=== PATIENT | female | born 1955 | race Caucasian/White ===

== ENCOUNTER 2023-07-11 12:27 | Emergency (ER) | payer MEDICARE, OTHER, MEDICAID, SELFPAY ==
[2023-07-11] VITALS (11 sets, daily range): BP systolic 107–125; BP diastolic 67–76; PULSE 80–88; RESP 18; TEMP 36.6; O2SAT 94–96; BMI 27.8
[2023-07-11 14:12] LABS: Troponin, Point-of-Care* 0.01 ng/ml (0.01-0.04)
[2023-07-11 14:31] LABS: Chloride* 104 mmol/L (96-114)
[2023-07-11 14:32] LABS: Potassium* 4.1 mmol/L (3.6-5.1); Sodium* 139 mmol/L (135-149)
[2023-07-11 14:34] LABS: Creatinine* 0.6 mg/dL (0.5-1.5); Est. Creatinine Clearance* 51.11; Estimated Glomerular Filt Rate 98 ml/min
[2023-07-11 14:35] LABS: Anion Gap 8 mEq/L (7-15); Blood Urea Nitrogen* 23 mg/dL (7-30); Calcium* 9.3 mg/dL (8.4-10.6); Carbon Dioxide* 27 mmol/L (20-32); Glucose* 101 mg/dL (60-115); Magnesium* 2.1 mg/dL (1.5-2.6)
[2023-07-11 14:36] LABS: Basophils Absolute Auto 0.03 K/uL (0.00-0.30); Basophils Percent Auto 0.4 % (0.0-3.0); Eosinophils Absolute Auto 0.18 K/uL (0.00-0.50); Eosinophils Percent Auto 2.4 % (0.0-7.0); Hematocrit 42.2 % (33.0-51.0); Hemoglobin* 13.6 gm/dL (12.0-16.0); Immature Granulocytes Abs Auto 0.02 K/uL (0.00-0.30); Immature Granulocytes Pct Auto 0.3 %; Lymphocytes Absolute Auto 1.85 K/uL (0.90-2.90); Lymphocytes Percent Auto 24.7 % (20-44); Mean Corpuscular HGB Conc 32 gm/dL (32-36); Mean Corpuscular Hemoglobin 30 pg (26-34); Mean Corpuscular Volume 94 fL (80-100); Monocytes Percent Auto 5.9 % (0.0-11.0); Neutrophils Absolute Auto 4.98 K/uL (1.7-7.0); Neutrophils Percent Auto 66.3 % (42.0-72.0); Platelet Count* 256 K/uL (140-440); RDW Coefficient of Variation % 13.1 % (11.5-15.5); Red Blood Count 4.47 m/uL (4.00-5.20)
[2023-07-11 14:38] LABS: Slide Review Reflex No
[2023-07-11 14:49] LABS: D Dimer Quantitative* 0.88 ug/ml (0.00-0.50)
--- NOTE | 2023-07-11 16:42 | ED_ITS ---
HPI - General Adult General Date Seen: 07/11/23 Chief complaint: Dizziness/Vertigo Stated complaint: Faint episode Time Seen by Provider: 07/11/23 13:35 Source: patient Mode of arrival: ambulatory Limitations: no limitations History of Present Illness HPI narrative: Patient is a 67-year-old woman who presents for evaluation of near syncopal episode while she was out walking dogs. She walks dogs professionally. She says the past year this is the 5th episode like this that she has had, it is always when she is out walking dogs. She says that she is very physically fit, she walks 8-14 miles a day and also does more cardiovascularly challenging workouts on a recumbent bike. She has never had trouble with more vigorous exertion. She does not get chest pain, difficulty breathing, says these episodes come on really suddenly the 1st thing that she will feels that her legs are going to give out. Today was bad enough that she had a laid down for a few minutes and wait until it passed. She has not ever been evaluated for this previously. She says during these episodes she feels like she can not feel her pulse. She denies recent illness, did have shoulder surgery 3 weeks ago, no lower extremity swelling or pain, no history of DVT or PE. She does not smoke or drink. Here today with her . Related Data Allergies Allergy/AdvReac Type Severity Reaction Status Date / Time adhesive tape Allergy Verified 07/11/23 13:22 iodine Allergy Verified 07/11/23 13:22 latex Allergy Verified 07/11/23 13:22 NSAIDS (Non-Steroidal Allergy Verified 07/11/23 13:22 Anti-Inflamma prochlorperazine Allergy Verified 07/11/23 13:22 [From Compazine] molds Allergy Uncoded 07/11/23 13:22 narcotics Allergy Uncoded 07/11/23 13:22 Review of Systems Status of ROS: Reports: 10 or more systems reviewed and unremarkable except as noted in History and below [facility] Social History Smoking Status: Never smoker Do you use any of these nicotine containing products: None Second hand tobacco smoke exposure: No How often do you have a drink containing alcohol: never How often do you have six or more drinks on one occasion: Never AUDIT-C Alcohol total score: 0 Non-prescribed substance use: denies use service: No Exam Narrative: Exam Narrative: Vital signs as noted above. In general, an alert, well-appearing patient. Head: Normocephalic, atraumatic. Eyes: Pupils are equal reactive. Extraocular movements are full. Conjunctivae are normal. ENT: Mucous membranes are moist. Throat is normal. Neck: Supple without lymphadenopathy. Heart: Regular rate and rhythm. No murmur or rub. Lungs: Clear bilaterally. No increased work of breathing, crackles or wheezes. Abdomen: Soft and nontender. No organomegaly. Extremities: Well perfused. No edema. No calf tenderness. Pulses intact. Neurologic: Patient is alert and oriented to person and place. Speech is fluent. Face is symmetric. Moves all extremities equally. Affect: Normal. Skin: Warm and dry. Well perfused. Const: Vital Signs, click to edit/add: Vital Signs - 24 hr 07/11/23 13:22 07/11/23 13:58 07/11/23 14:00 Temperature 97.9 F Pulse Rate 84 85 Pulse Rate [Pulse Oximeter] 88 Respiratory Rate 18 Blood Pressure Blood Pressure [Ri ght Upper Arm] 125/70 Pulse Oximetry 96 95 96 Oxygen Delivery Me thod Room Air 07/11/23 14:01 07/11/23 14:02 07/11/23 14:30 Temperature Pulse Rate 87 87 85 Pulse Rate [Pulse Oximeter] Respiratory Rate Blood Pressure 115/76 Blood Pressure [Ri ght Upper Arm] Pulse Oximetry 95 95 94 Oxygen Delivery Me thod 07/11/23 14:32 07/11/23 14:35 07/11/23 15:00 Temperature Pulse Rate 86 82 Pulse Rate [Pulse Oximeter] Respiratory Rate Blood Pressure 107/67 Blood Pressure [Ri ght Upper Arm] Pulse Oximetry 96 95 95 Oxygen Delivery Me thod 07/11/23 15:02 07/11/23 15:30 Temperature Pulse Rate 80 85 Pulse Rate [Pulse Oximeter] Respiratory Rate Blood Pressure 107/71 Blood Pressure [Ri ght Upper Arm] Pulse Oximetry 94 95 Oxygen Delivery Me thod Course Course ED Course: Patient had an EKG which by my review shows sinus rhythm, ventricular rate of 83. TN is normal, corrected QT is 441. No acute ST segment changes, normal T- waves. Patient had labs which showed normal white blood cell count, hemoglobin of 13.6. Electrolytes are normal, including magnesium. Point of care troponin is 0.01. D-dimer is mildly elevated for age at 0.88. I discussed the abnormal D-dimer with her and we talked about whether to pursue CT scanning or not. She feels that she would prefer not to in discussion of risks and benefits, which I think is reasonable. She is not hypoxic or tachycardic, she is asymptomatic now, I think the likelihood of significant PE as a cause for her syncope is low. These episodes certainly could be vagal in nature, I do think given that she has had no prior evaluation that some sort of cardiac monitoring in the form of most likely ZIO patch given the infrequency of her episodes would be reasonable. Her primary doctor is Dr. Whittaker, I have asked her to follow up with him and arrange for monitoring as an outpatient. If she has acute worsening, develops chest pain, difficulty breathing, fainting or other worsening return at any time to the emergency department. She is comfortable with that plan. Vital Signs Vital signs: Initial Vital Signs Temperature 97.9 F 07/11/23 13:22 Temperature Source Temporal Artery Scan 07/11/23 13:22 Pulse Rate 88 07/11/23 13:22 Pulse Rhythm Regular 07/11/23 13:22 Respiratory Rate 18 07/11/23 13:22 Blood Pressure 125/70 07/11/23 13:22 Blood Pressure Mean 88 07/11/23 13:22 Blood Pressure Position Sitting 07/11/23 13:22 Pulse Oximetry 96 07/11/23 13:22 Oxygen Delivery Method Room Air 07/11/23 13:22 Vital Signs Temperature 97.9 F 07/11/23 13:22 Pulse Rate 88 07/11/23 13:22 Respiratory Rate 18 07/11/23 13:22 Blood Pressure 125/70 07/11/23 13:22 Pulse Oximetry 96 07/11/23 13:22 Oxygen Delivery Method Room Air 07/11/23 13:22 Temperature 97.9 F 07/11/23 13:22 Pulse Rate 85 07/11/23 15:30 Respiratory Rate 18 07/11/23 13:22 Blood Pressure 107/71 07/11/23 15:02 Pulse Oximetry 95 07/11/23 15:30 Oxygen Delivery Method Room Air 07/11/23 13:22 Medical Decision Making Lab Data Labs: Lab Results 07/11/23 Range/Units 13:48 WBC 7.50 (4.50-11.00) K/uL RBC 4.47 (4.00-5.20) m/uL Hgb 13.6 (12.0-16.0) gm/dL Hct 42.2 (33.0-51.0) % MCV 94 (80-100) fL MCH 30 (26-34) pg MCHC 32 (32-36) gm/dL RDW Coeff of Boo 13.1 (11.5-15.5) % Plt Count 256 (140-440) K/uL Neut % (Auto) 66.3 (42.0-72.0) % Lymph % (Auto) 24.7 (20-44) % [place]ascade % (Auto) 5.9 (0.0-11.0) % Eos % (Auto) 2.4 (0.0-7.0) % Baso % (Auto) 0.4 (0.0-3.0) % Neut # (Auto) 4.98 (1.7-7.0) K/uL Lymph # (Auto) 1.85 (0.90-2.90) K/uL Cascade # (Auto) 0.40 (0.00-0.90) K/UL Eos # (Auto) 0.18 (0.00-0.50) K/uL Baso # (Auto) 0.03 (0.00-0.30) K/uL Abs Immat Gran (auto) 0.02 (0.00-0.30) K/uL Imm/Tot Granulo (auto) 0.3 % D-Dimer Quant (PE/DVT) 0.88 H (0.00-0.50) ug/ml Sodium 139 (135-149) mmol/L Potassium 4.1 (3.6-5.1) mmol/L Chloride 104 (96-114) mmol/L Carbon Dioxide 27 (20-32) mmol/L Anion Gap 8 (7-15) mEq/L BUN 23 (7-30) mg/dL Creatinine 0.6 (0.5-1.5) mg/dL Estimated Creat Clear 51.11 Estimated GFR 98 ml/min Glucose 101 (60-115) mg/dL Calcium 9.3 (8.4-10.6) mg/dL Magnesium 2.1 (1.5-2.6) mg/dL POC Troponin I 0.01 (0.01-0.04) ng/ml Discharge Plan Discharge Clinical Impression: Near syncope Patient Disposition: Home, Self-Care Condition: Improved Instructions: Near Syncope (ED) Additional Instructions: Recommend follow-up with your primary doctor, I would suggest some sort of cardiac monitoring at home such as a Holter monitor or ZIO patch. Your labs here today are unremarkable with the exception of a very mildly elevated D-dimer. As we have discussed, this is a nonspecific test that we use to screen for blood clots. We have decided not to pursue that diagnosis further today, but if you were to develop significant shortness of breath, fainting, chest pain or other new symptoms, you should return for re-evaluation. Follow Up/Referrals: Donaldo Whittaker MD [Primary Care Provider] - Stand Alone Forms: [employer] Info Instructions
== END 2023-07-11 15:46 | disposition home or self-care (01) ==
PROVIDERS: Emergency Provider Emergency Medicine; PCP Family Medicine
DX: R55 Syncope and collapse (principal)
CPT/HCPCS: 36415; 80048; 83735; 84484; 85025; 85379; 93005; 94761; 99284

== ENCOUNTER 2023-11-13 01:42 | Emergency (ER) | payer MEDICARE, OTHER, SELFPAY ==
[2023-11-13] VITALS (7 sets, daily range): BP systolic 105–149; BP diastolic 64–125; PULSE 63–75; RESP 14–20; TEMP 36.7; O2SAT 95–98; BMI 30.3
[2023-11-13 02:13] LABS: Basophils Absolute Auto 0.03 K/uL (0.00-0.30); Basophils Percent Auto 0.5 % (0.0-3.0); Eosinophils Absolute Auto 0.22 K/uL (0.00-0.50); Eosinophils Percent Auto 3.5 % (0.0-7.0); Hematocrit 38.8 % (33.0-51.0); Hemoglobin* 12.4 gm/dL (12.0-16.0); Immature Granulocytes Abs Auto 0.02 K/uL (0.00-0.30); Immature Granulocytes Pct Auto 0.3 %; Lymphocytes Absolute Auto 2.46 K/uL (0.90-2.90); Lymphocytes Percent Auto 38.6 % (20-44); Mean Corpuscular HGB Conc 32 gm/dL (32-36); Mean Corpuscular Hemoglobin 30 pg (26-34); Mean Corpuscular Volume 94 fL (80-100); Monocytes Percent Auto 7.4 % (0.0-11.0); Neutrophils Absolute Auto 3.17 K/uL (1.7-7.0); Neutrophils Percent Auto 49.7 % (42.0-72.0); Platelet Count* 192 K/uL (140-440); RDW Coefficient of Variation % 13.3 % (11.5-15.5); Red Blood Count 4.15 m/uL (4.00-5.20); White Blood Count* 6.37 K/uL (4.50-11.00)
[2023-11-13 02:16] LABS: Slide Review Reflex No
[2023-11-13 02:25] LABS: Chloride* 105 mmol/L (96-114); Sodium* 137 mmol/L (135-149)
[2023-11-13 02:26] LABS: Potassium* 3.8 mmol/L (3.6-5.1)
[2023-11-13 02:28] LABS: Alkaline Phosphatase* 79 U/L (40-150); Anion Gap 6 mEq/L (7-15); Aspartate Amino Transferase* 50 U/L (12-35); Bilirubin Total* 0.4 mg/dL (0.1-1.5); Carbon Dioxide* 26 mmol/L (20-32); Creatinine* 0.6 mg/dL (0.5-1.5); Est. Creatinine Clearance* 51.11; Estimated Glomerular Filt Rate 98 ml/min; Total Protein* 6.9 g/dL (6.0-8.3)
[2023-11-13 02:29] LABS: Alanine Aminotransferase* 29 U/L (4-35); Blood Urea Nitrogen* 27 mg/dL (7-30); Glucose* 100 mg/dL (60-115)
--- NOTE | 2023-11-13 02:29 | XR_ITS ---
Patient: SANDI GAUTHIER Facility:?[facility] Patient ID:?[id number] Site Patient ID:?[id number]. Site :?[id number] Study:?XRay-Chest 2 VIEW-11/13/2023 2:49:06 AM Ordering Physician:MARTHA Final Report: INDICATION: Chest pain TECHNIQUE: Chest radiograph 2 views COMPARISON: None FINDINGS: Mediastinum: The mediastinum is normal in appearance. The heart silhouette is normal in size and morphology. Lung: Both lungs are unremarkable in appearance. No sign of pleural effusion seen. No pneumothorax is identified. Bone and Soft tissue: Unremarkable for age. IMPRESSION: 1. No acute cardiopulmonary disease is seen. Dictated by: Kiran Encarnacion MD @ 11/13/2023 02:52:46 Signed by:Fran Encarnacion MD @11/13/2023 2:52:46 AM (Electronic Signature)
[2023-11-13] MEDS: ONDANSETRON 2 MG/ML inj 4 MG IVP (02:34)
[2023-11-13] MEDS: 0.9 % SODIUM CHLORIDE 500 ML 500 ML 1000 ML IV (02:35)
[2023-11-13] MEDS: PANTOPRAZOLE SODIUM 40 MG INJ IVP (02:35)
--- NOTE | 2023-11-13 02:36 | ED_ITS ---
HPI - General Adult General Chief complaint: Chest Pain Stated complaint: acute chest pain Time Seen by Provider: 11/13/23 02:02 Source: patient Mode of arrival: ambulatory Limitations: no limitations History of Present Illness HPI narrative: 67-year-old female presents the emergency department for evaluation of chest pain for the past couple of hours. Pain woke her from sleep, lower chest, central, spasm like. Lasted about 20 minutes and was accompanied by nausea. It was initially constant and then it abruptly stopped, went away for about 30 minutes. Happened while she was at rest. It came again, lasting about 15-20 minutes, this time not accompanied by nausea. She reports that she has a history of gastric bypass and cannot vomit. She has not been having diarrhea, fever. She did not try any interventions to help with symptoms prior to coming to the ED. Does not regularly use antacids. Reports that she feels like she cannot take a deep breath but is not having breathing difficulty. The chest pain is constant, lower chest, anterior, does not radiate. She has a history of SVT and used a pulse oximeter to check her heart rate and realized it was normal at home. Initially this was reassuring but she became concerned with the 2nd episode of pain that caused her to come to the ED. she had a 3rd episode about 10 minutes after arrival to the ED which did not last as long but felt similar. She was on the monitors at the time and no evidence of arrhythmia, abnormal vital signs or hypoxia were noted. Denies prior history of similar symptoms. She believe she has had a stress test remotely but not recent. She had an echo in late August as part of her SVT workup and has been referred to electrophysiology. She actually does have an ablation scheduled in 2 weeks. No recent fevers or other signs of illness. No sick contacts. No new foods. She has been exercising more lately, walking 5-6 miles per day where she was previously only walking too. She has been having a little bit of charley horses behind the knee and in the lower thigh at night on occasion, but especially last night. No history of DVT or PE. No calf tenderness or difficulty walking. No swelling. Feels anxious but does not believe this is the only reason for her symptoms. She suspects it is related to her stomach. Past medical history notable for prior gastric bypass surgery, cholecystectomy, appendectomy. Reports that her only home medications are twice weekly iron, 12.5 mg of metoprolol daily and Trini for mold allergies. No recent injury or trauma. Socially she is a nonsmoker. ROS is notable for the chest/GI symptoms as described above, otherwise denies times 12 systems. Related Data Home Medications Medication Instructions Recorded Confirmed fluticasone propionate 50 1 spray intranasal DAILY 11/13/23 11/13/23 mcg/actuation nasal spray,suspension metoprolol succinate 25 mg 12.5 mg PO DAILY 11/13/23 11/13/23 tablet,extended release 24 hr Allergies Allergy/AdvReac Type Severity Reaction Status Date / Time adhesive tape Allergy Verified 07/11/23 13:22 iodine Allergy Verified 07/11/23 13:22 latex Allergy Verified 07/11/23 13:22 NSAIDS (Non-Steroidal Allergy Verified 07/11/23 13:22 Anti-Inflamma prochlorperazine Allergy Verified 07/11/23 13:22 [From Compazine] molds Allergy Uncoded 07/11/23 13:22 narcotics Allergy Uncoded 07/11/23 13:22 [facility] Surgical History H/O gastric bypass ?Z98.84 - Bariatric surgery status (ICD-10) Social History Smoking Status: Never smoker Do you use any of these nicotine containing products: None Second hand tobacco smoke exposure: No How often do you have a drink containing alcohol: never How often do you have six or more drinks on one occasion: Never AUDIT-C Alcohol total score: 0 Non-prescribed substance use: denies use service: No Exam Const: Vital Signs, click to edit/add: Vital Signs - 24 hr 11/13/23 01:50 11/13/23 02:00 11/13/23 02:15 Temperature 98.1 F Pulse Rate [Pulse Oximeter] 75 67 75 Respiratory Rate 20 20 20 Blood Pressure [Ri ght Upper Arm] 149/96 H 118/80 144/125 H Pulse Oximetry 98 95 98 Oxygen Delivery Me thod Room Air Room Air Room Air 11/13/23 02:30 11/13/23 02:40 11/13/23 03:00 Temperature Pulse Rate [Pulse Oximeter] 66 63 Respiratory Rate 16 16 Blood Pressure [Ri ght Upper Arm] 127/96 H 105/64 Pulse Oximetry 98 98 98 Oxygen Delivery Me thod Room Air Room Air 11/13/23 03:30 Temperature Pulse Rate [Pulse Oximeter] 67 Respiratory Rate 14 Blood Pressure [Ri ght Upper Arm] 120/76 Pulse Oximetry 98 Oxygen Delivery Me thod Room Air Documenting provider has reviewed patient's vital signs: yes Common normals: no apparent distress General appearance: cooperative and well kempt Other: Mildly anxious but redirectable. Good historian. HENMT: Common normals: normocephalic, moist oral mucous membranes and oropharynx normal Head and scalp: normocephalic Mouth: oral and palatal mucosa normal Eye: Common normals: conjunctivae normal and fundi normal bilaterally General eye: normal appearance of both eyes Conjunctiva: conjunctiva(e) normal Direct Ophthalmoscopy: fundi normal bilaterally Neck & C-Spine: Common normals: full ROM and no lymphadenopathy Resp: Common normals: normal respiratory effort, no use of accessory muscles and clear to auscultation bilaterally Effort & inspection: able to speak in complete sentences Auscultation: clear to auscultation bilaterally Cardio: Common normals: regular rate, regular rhythm, S1 normal heart sound, S2 normal heart sound and no murmurs Rate: regular rate Rhythm: regular rhythm Heart sounds: S1 normal and S2 normal GI: Common normals: Normal to inspection, nondistended, normoactive bowel sounds present, soft to palpation, non-tender, no hepatosplenomegaly and no masses Palpation: soft and no hepatosplenomegaly Extremity: Common normals: normal to inspection, full ROM, normal capillary refill and no pedal edema Other: , no palpable cords or tenderness. Negative Homans. Neuro: Speech: speech normal Motor exam: strength 5/5 throughout and no movement abnormalities noted Psych: Appearance: well kempt Attitude: engaged Activity/motor behavior: appropriate eye contact Mood and affect: anxious Insight: insight good Judgement: judgment good Skin: Common normals: no rashes or lesions noted General skin exam: no rashes or lesions noted Course Course ED Course: 67-year-old female with history of SVT presenting with chest pain, suspicious for esophageal spasm. Cannot exclude arrhythmia, acute coronary syndrome, pulmonary embolism, musculoskeletal etiology, GERD, gastroenteritis, among others. Suspect GI in origin. Initial vitals are reassuring. EKG is obtained showing obvious normal sinus rhythm and no signs of ischemia. Typical blood will be drawn to look for acute cardiac process, chest x-ray, inflammatory markers. Will give Protonix, Zofran and IV fluid. Consider Toradol. Await findings. Reevaluation(s) Time of Reevaluation #1: 03:34 Reevaluation #1: Patient with complete relief of symptoms after Zofran and Protonix. Normal labs and x-ray reviewed with patient. Second trouble be drawn about 10 minutes. Expect this to be normal as well. Counseled that this was likely an esophageal spasm. She will be given a prescription for Zofran, instructed on taking once daily famotidine or omeprazole for at least the next 5 days. Alarm symptoms reviewed that would warrant further ED workup or primary care follow-up. She verbalizes understanding and agreement. Has no further questions. Update: 2nd troponin negative. Vital Signs Vital signs: Initial Vital Signs Temperature 98.1 F 11/13/23 01:50 Temperature Source Temporal Artery Scan 11/13/23 01:50 Pulse Rate 75 11/13/23 01:50 Respiratory Rate 20 11/13/23 01:50 Blood Pressure 149/96 H 11/13/23 01:50 Blood Pressure Mean 113 H 11/13/23 01:50 Blood Pressure Position Sitting 11/13/23 01:50 Pulse Oximetry 98 11/13/23 01:50 Oxygen Delivery Method Room Air 11/13/23 01:50 Vital Signs Temperature 98.1 F 11/13/23 01:50 Pulse Rate 75 11/13/23 01:50 Respiratory Rate 20 11/13/23 01:50 Blood Pressure 149/96 H 11/13/23 01:50 Pulse Oximetry 98 11/13/23 01:50 Oxygen Delivery Method Room Air 11/13/23 01:50 Temperature 98.1 F 11/13/23 01:50 Pulse Rate 67 11/13/23 03:30 Respiratory Rate 14 11/13/23 03:30 Blood Pressure 120/76 11/13/23 03:30 Pulse Oximetry 98 11/13/23 03:30 Oxygen Delivery Method Room Air 11/13/23 03:30 Medications Administered Medications: Generic Name Dose Route Start Last Admin Trade Name Freq PRN Reason Stop Dose Admin Sodium Chloride 500 mls @ 1,000 mls/hr 11/13/23 02:30 11/13/23 03:09 0.9 % Sodium Chloride 500 Ml IV 11/13/23 02:59 Infused .Q30M TORO Infusion Ondansetron HCl 4 mg 11/13/23 02:29 11/13/23 02:34 Ondansetron 2 Mg/Ml Inj IVP 11/13/23 02:30 4 mg ONCE ONE Administration Pantoprazole Sodium 40 mg 11/13/23 02:29 11/13/23 02:35 Pantoprazole Sodium 40 Mg Inj IVP 11/13/23 02:30 40 mg ONCE ONE Administration Medical Decision Making Lab Data Labs: Lab Results 11/13/23 11/13/23 11/13/23 Range/Units 02:09 02:10 03:40 WBC 6.37 (4.50-11.00) K/uL RBC 4.15 (4.00-5.20) m/uL Hgb 12.4 (12.0-16.0) gm/dL Hct 38.8 (33.0-51.0) % MCV 94 (80-100) fL MCH 30 (26-34) pg MCHC 32 (32-36) gm/dL RDW Coeff of Boo 13.3 (11.5-15.5) % Plt Count 192 (140-440) K/uL Neut % (Auto) 49.7 (42.0-72.0) % Lymph % (Auto) 38.6 (20-44) % Divide % (Auto) 7.4 (0.0-11.0) % Eos % (Auto) 3.5 (0.0-7.0) % Baso % (Auto) 0.5 (0.0-3.0) % Neut # (Auto) 3.17 (1.7-7.0) K/uL Lymph # (Auto) 2.46 (0.90-2.90) K/uL Divide # (Auto) 0.50 (0.00-0.90) K/UL Eos # (Auto) 0.22 (0.00-0.50) K/uL Baso # (Auto) 0.03 (0.00-0.30) K/uL Abs Immat Gran (auto) 0.02 (0.00-0.30) K/uL Imm/Tot Granulo (auto) 0.3 % Sodium 137 (135-149) mmol/L Potassium 3.8 (3.6-5.1) mmol/L Chloride 105 (96-114) mmol/L Carbon Dioxide 26 (20-32) mmol/L Anion Gap 6 L (7-15) mEq/L BUN 27 (7-30) mg/dL Creatinine 0.6 (0.5-1.5) mg/dL Estimated Creat Clear 51.11 Estimated GFR 98 ml/min Glucose 100 (60-115) mg/dL Calcium 9.0 (8.4-10.6) mg/dL Total Bilirubin 0.4 (0.1-1.5) mg/dL AST 50 H (12-35) U/L ALT 29 (4-35) U/L Alkaline Phosphatase 79 (40-150) U/L Troponin I < 0.01 L (0.01-0.04) ng/mL C-Reactive Protein < 0.5 L (0.5-1.0) mg/dL NT-Pro-B Natriuret Pep 127 pg/mL Total Protein 6.9 (6.0-8.3) g/dL Albumin 4.0 (3.3-5.0) g/dL POC Troponin I 0.00 L 0.00 L (0.01-0.04) ng/ml Imaging Data Chest x-ray: Attestation: I have reviewed the pertinent imaging results. My impression: Normal chest x-ray Radiologist's impression: IMPRESSION: 1. No acute cardiopulmonary disease is seen. ECG Data Attestation: I personally reviewed and interpreted this ECG as follows: Prior ECG tracings: available for review Interpretation: Normal sinus rhythm, rate 65. Normal intervals and axis. No significant ST or T-wave abnormalities. Normal EKG. Comparison 07/15/2023 Discharge Plan Discharge Clinical Impression: Spasm of esophagus Patient Disposition: Home w/ Parent or Adult Condition: Improved Instructions: Esophageal Spasm (ED) Additional Instructions: I am glad that you are feeling so much better. I have given her prescription for the same anti nausea medicine to take if your symptoms return. I would also like for you to take a stomach acid medicine like [id number] famotidine or omeprazole once daily for the next 5 days. I suspect that your symptoms were triggered by a GI bug, we have lots of this going around right now. Drink lots of fluids, slowly advance her diet if you feel well enough to do so. If you have any severe abdominal pain, worsening of symptoms or failure to improve, please follow-up with your primary care doctor. Any severe symptoms, come back to the ED. avoid alcohol, spicy foods and overeating. Activity Level: No Restrictions Discharge Diet: Regular Prescriptions: No Action metoprolol succinate 25 mg tablet extended release 24 hr 12.5 mg PO DAILY fluticasone propionate 50 mcg/actuation spray,suspension 1 spray INTRANASAL DAILY Follow Up/Referrals: Donaldo Whittaker MD [Primary Care Provider] - Stand Alone Forms: [employer] Info Instructions
[2023-11-13 02:37] LABS: C Reactive Protein* < 0.5 mg/dL (0.5-1.0)
[2023-11-13 02:41] LABS: NT Pro B Type NatriureticPept* 127 pg/mL; Troponin I* < 0.01 ng/mL (0.01-0.04)
== END 2023-11-13 03:54 | disposition home or self-care (01) ==
PROVIDERS: Emergency Provider Family Medicine; PCP Family Medicine
DX: K22.4 Dyskinesia of esophagus (principal)
CPT/HCPCS: 36415; 71046; 80053; 83880; 84484; 85025; 86140; 93005; 94761; 96374; 96375; 99284; C9113; J2405; J7030

== ENCOUNTER 2023-12-24 17:52 | Emergency (ER) | payer MEDICARE, OTHER, SELFPAY ==
[2023-12-24 17:59] VITALS: BP 110/74; PULSE 78; RESP 18; TEMP 37.1; O2SAT 95
--- NOTE | 2023-12-24 18:09 | CRLHL7_ITS ---
For Patients: As a result of the Century Cures Act, medical imaging exams and procedure reports are released immediately into your electronic medical record. You may view this report before your referring provider. If you have questions, please contact your health care provider. INDICATION: Leg pain and swelling. TECHNIQUE: Ultrasound venous duplex lower right extremity. Compression venous exam was performed using pedroza-scale, color Doppler, and spectral Doppler analysis. COMPARISON: None. FINDINGS: Deep veins: Sonographic imaging demonstrates the right common femoral, deep femoral, superficial femoral, popliteal, posterior tibial and the contralateral left common femoral veins to be fully compressible with normal color Doppler blood flow. Superficial veins: Greater saphenous vein is fully compressible. Probable popliteal cyst measuring 5.6 x 1.0 x 2.5 centimeters.. IMPRESSION: No DVT in the right lower extremity. Dictated by Arianna Siddiqui MD @ 12/24/2023 7:40:29 PM (Electronically Signed)
--- NOTE | 2023-12-24 19:55 | ED.GENADULT ---
HPI - General Adult General Date Seen: 12/24/23 Chief complaint: Extremity Pain/Injury, Lower Stated complaint: Possible blood clot R leg Time Seen by Provider: 12/24/23 19:04 Source: patient Mode of arrival: ambulatory Limitations: no limitations History of Present Illness HPI narrative: Patient is 68-year-old female presenting to the emergency department for right knee pain. States has been going on for the past month. Pain starts in the back of the knee that radiates up both the front and back. Over the past week it has been worse. Symptoms are worse when sitting still but improved with movement. States she has had symptoms similar to this in the past was a Lam cyst. She tried to get appointment her primary care provider but was unable to in triage line told her to come to the emergency department for an ultrasound for possible blood clot. Denies any history of blood clots. Denies fevers, chills, weakness, numbness. No other concerns noted at this time. Related Data Home Medications ?Medication ?Instructions ?Recorded ?Confirmed fluticasone propionate 50 1 spray intranasal DAILY 11/13/23 11/13/23 mcg/actuation nasal spray,suspension metoprolol succinate 25 mg 12.5 mg PO DAILY 11/13/23 11/13/23 tablet,extended release 24 hr Allergies Allergy/AdvReac Type Severity Reaction Status Date / Time adhesive tape Allergy Verified 07/11/23 13:22 iodine Allergy Verified 07/11/23 13:22 latex Allergy Verified 07/11/23 13:22 NSAIDS (Non-Steroidal Allergy Verified 07/11/23 13:22 Anti-Inflamma prochlorperazine Allergy Verified 07/11/23 13:22 [From Compazine] molds Allergy Uncoded 07/11/23 13:22 narcotics Allergy Uncoded 07/11/23 13:22 Review of Systems Narrative: Pertinent systems reviewed and were negative unless stated HPI PFSH PFSH Surgical History H/O gastric bypass ?Z98.84 - Bariatric surgery status (ICD-10) Social History Smoking Status: Never smoker Do you use any of these nicotine containing products: None Second hand tobacco smoke exposure: No How often do you have a drink containing alcohol: never How often do you have six or more drinks on one occasion: Never AUDIT-C Alcohol total score: 0 Non-prescribed substance use: denies use service: No Exam Narrative: Exam Narrative: Const: Well-nourished, Well-developed, in mild distress Eyes: PERRL, no conjunctival injection, and symmetrical lids HENT: Atraumatic external nose and ears. Moist mucous membranes. MSK:Extremities w/o deformity, Normal Active ROM, swollen right knee, nontender right knee and leg Skin: Warm, Dry. No rashes or lesions. Neuro: Normal Muscle tone, No focal neurological deficits. Psych: Awake, Alert, & Oriented x3. Appropriate mood and affect. Const: Vital Signs, click to edit/add: Vital Signs - 24 hr 12/24/23 17:59 Temperature 98.7 F Pulse Rate [Right Pulse Oximeter] 78 Respiratory Rate 18 Blood Pressure [Ri ght Upper Arm] 110/74 Pulse Oximetry 95 Oxygen Delivery Me thod Room Air Course Vital Signs Vital signs: Initial Vital Signs Temperature 98.7 F 12/24/23 17:59 Temperature Source Temporal Artery Scan 12/24/23 17:59 Pulse Rate 78 12/24/23 17:59 Respiratory Rate 18 12/24/23 17:59 Blood Pressure 110/74 12/24/23 17:59 Blood Pressure Mean 86 12/24/23 17:59 Blood Pressure Position Sitting 12/24/23 17:59 Pulse Oximetry 95 12/24/23 17:59 Oxygen Delivery Method Room Air 12/24/23 17:59 Vital Signs Temperature 98.7 F 12/24/23 17:59 Pulse Rate 78 12/24/23 17:59 Respiratory Rate 18 12/24/23 17:59 Blood Pressure 110/74 12/24/23 17:59 Pulse Oximetry 95 12/24/23 17:59 Oxygen Delivery Method Room Air 12/24/23 17:59 Temperature 98.7 F 12/24/23 17:59 Pulse Rate 78 12/24/23 17:59 Respiratory Rate 18 12/24/23 17:59 Blood Pressure 110/74 12/24/23 17:59 Pulse Oximetry 95 12/24/23 17:59 Oxygen Delivery Method Room Air 12/24/23 17:59 Medical Decision Making MDM Narrative Medical decision making narrative: Patient is 68-year-old female presenting to emergency department for concern of a blood clot. Knee is swollen and nontender this seems more likely to be sometimes assist. Will do an ultrasound better evaluated. She is otherwise neurovascular intact. Ultrasound was performed showing a Lam cyst was a consistent with her symptoms. No signs of DVT. She is otherwise doing well. I do not believe further intervention is necessary as we have a diagnosis she will be discharged home. She is agreeable to this plan. Imaging Data Venous US: Radiologist's impression: Deep veins: Sonographic imaging demonstrates the right common femoral, deep femoral, superficial femoral, popliteal, posterior tibial and the contralateral left common femoral veins to be fully compressible with normal color Doppler blood flow. Superficial veins: Greater saphenous vein is fully compressible. Probable popliteal cyst measuring 5.6 x 1.0 x 2.5 centimeters.. IMPRESSION: No DVT in the right lower extremity. Dictated by Arianna Siddiqui MD @ 12/24/2023 7:40:29 PM Discharge Plan Discharge Clinical Impression: Lam cyst Qualifiers: Laterality: right Qualified Code(s): M71.21 - Synovial cyst of popliteal space [Lam], right knee Patient Disposition: Home, Self-Care Condition: Stable Instructions: Lam Cyst (ED) Additional Instructions: Take Tylenol and ibuprofen for pain. I recommend follow-up with orthopedics tomorrow morning. You can schedule appointment by calling [phone]. Return for new or worsening symptoms. Prescriptions: No Action metoprolol succinate 25 mg tablet extended release 24 hr 12.5 mg PO DAILY fluticasone propionate 50 mcg/actuation spray,suspension 1 spray INTRANASAL DAILY Follow Up/Referrals: Donaldo Whittaker MD [Primary Care Provider] - Stand Alone Forms: [facility] Info Instructions
[2023-12-24 20:00] VITALS: BP 112/74; PULSE 74; RESP 18; TEMP 37.1; O2SAT 95
[2023-12-24 20:05] VITALS: BP 112/74; PULSE 74; RESP 18; TEMP 37.1
== END 2023-12-24 20:05 | disposition home or self-care (01) ==
LOC: ED 20:01
PROVIDERS: Emergency Provider Student in an Organized Health Care Education/Training Program; PCP Family Medicine
DX: M71.21 Synovial cyst of popliteal space [Baker], right knee (principal); M25.561 Pain in right knee
CPT/HCPCS: 93971; 99282; 99283; 99284

== ENCOUNTER 2024-07-09 21:32 | Emergency (ER) | payer MEDICARE, OTHER, SELFPAY ==
--- NOTE | 2024-07-09 21:49 | ED_ITS ---
HPI - General Adult General Date Seen: 07/09/24 Chief complaint: Arrhythmia/Palpitations Stated complaint: Heart issues, has history of SVT Time Seen by Provider: 07/09/24 21:43 History of Present Illness HPI narrative: 86 yo F with h/o SVT, seasonal allergies, osteoarthritis, depression, chronic insomnia, restless legs, gastric bypass, history of breast cancer, left rotator cuff repair No history of DVT/PE. Patient reports that she does not typically feel palpitations when she has runs of SVT. It can occur when she is walking in cold weather and they do not give her palpitations but she does suddenly feel short of breath, very weak, and presyncopal. She had had these episodes off and on for quite a long time for ultimately she had a heart monitor that diagnosed her with SVT. She underwent a cardiac ablation for SVT last spring, done [facility], Dr. Lan. It sounds like the procedure was technically challenging but ultimately successful. She had gone several months without any further symptoms. Last , on she was walking some dogs in the cold weather when she had another episode of shortness of breath and presyncope that she thought was probably SVT. She already saw her primary care provider for that and is currently wearing a Zio patch. She has been been a little bit under the weather since yesterday with a cold sore in her mouth and thinks that she might be coming down with a virus. However she and her are very fastidious and avoiding exposure to COVID or other illnesses. Tonight she was sitting in a chair at about 8 or 10 rate 20 when she started feeling palpitations. She felt her heart skipping and beating hard noon it seems to be beating a pattern of 1 quick bead in 1 slow beat, alternating. With this she felt very odd, anxious, vaguely short of breath, mildly dizzy. Her heart was not racing but it was skipping. It lasted about 10 minutes and resolved. Because of her SVT or potential SVT last week she got herself a new [employer] watch that records cardiac rhythms yesterday and said up with her phone. She was able record to 30 second rhythm strips of her palpitations tonight. She showed them to me and it demonstrates sinus rhythm with frequent PVCs. On 1 rhythm strip she has 19 PVCs during the 30 seconds. After that the palpitations went away. Since then she has just been feeling somewhat anxious, vaguely dizzy, mildly shaky, somewhat unsteady. She called her had him bring her directly here to the ER. Per records from heard [facility] care link chart from [facility]: Meds: Albuterol inhaler Vitamin D3 Vitamin B12 Ferrous sulfate 75 mg per male Trini Fluticasone GoLYTELY Related Data Home Medications ?Medication ?Instructions ?Recorded ?Confirmed fluticasone propionate 50 1 spray intranasal DAILY 11/13/23 12/26/23 mcg/actuation nasal spray,suspension cholecalciferol (vitamin D3) 50 50 mcg PO QDAY 12/26/23 12/26/23 mcg (2,000 unit) chewable tablet fexofenadine 180 mg tablet 180 mg PO DAILY 12/26/23 12/26/23 mecobalamin (vitamin B12) 1,000 1,000 mcg sublingual QDAY 12/26/23 12/26/23 mcg disintegrating tablet,sublingual pediatric nutrition, iron, ea PO .twiceweekly 12/26/23 12/26/23 LF-fiber 0.03 gram-0.6 kcal/mL oral liquid Allergies Allergy/AdvReac Type Severity Reaction Status Date / Time adhesive tape Allergy Verified 12/26/23 09:07 iodine Allergy Verified 12/26/23 09:07 latex Allergy Verified 12/26/23 09:07 NSAIDS (Non-Steroidal Allergy Verified 12/26/23 09:07 Anti-Inflamma prochlorperazine (From Allergy Verified 12/26/23 09:07 Compazine) molds Allergy Uncoded 12/26/23 09:07 narcotics Allergy Uncoded 12/26/23 09:07 [facility] Medical History (Updated 07/10/24 @ 00:04 by Jose Rivero MD) Breast cancer ?C50.919 - Malignant neoplasm of unspecified site of unspecified female breast (ICD-10) Depression ?F32.A - Depression, unspecified (ICD-10) Anxiety ?F41.9 - Anxiety disorder, unspecified (ICD-10) Surgical History (Updated 12/26/23 @ 09:14 by Monica Estrada ~ RN, RN) History of breast reconstruction ?Z98.890 - Other specified postprocedural states (ICD-10) History of arthroscopy of both knees ?Z98.890 - Other specified postprocedural states (ICD-10) S/P left rotator cuff repair ?Z98.890 - Other specified postprocedural states (ICD-10) H/O mastectomy ?Z90.10 - Acquired absence of unspecified breast and nipple (ICD-10) History of cholecystectomy ?Z90.49 - Acquired absence of other specified parts of digestive tract (ICD- 10) H/O gastric bypass ?Z98.84 - Bariatric surgery status (ICD-10) Family History (Updated 12/26/23 @ 09:14 by Monica Estrada ~ RN, RN) Father Multiple myeloma Sister Breast cancer Lung cancer Non Hodgkin's lymphoma Skin cancer Sister Breast cancer Social History Smoking Status: Never smoker Do you use any of these nicotine containing products: None Second hand tobacco smoke exposure: No How often do you have a drink containing alcohol: never How often do you have six or more drinks on one occasion: Never AUDIT-C Alcohol total score: 0 Non-prescribed substance use: denies use service: No Exam Narrative: Exam Narrative: Constitutional: Appears well-developed and well-nourished. Alert. Conversant. Non toxic. HENT: Head: Atraumatic. Nose: Nose normal. Mouth/Throat: Oral mucosa is clear and moist. no trismus. Wearing an N95 mask for COVID prophylaxis. Eyes: Conjunctivae normal. EOM normal. Pupils equal, round, and reactive to light. No scleral icterus. Neck: Normal range of motion. Neck supple. No tracheal deviation present. No thyromegaly. Cardiovascular: Normal rate, regular rhythm. She had 1 asymptomatic PVC on the monitor while we were talking. No other irregularity No gallop. No friction rub. No murmur heard. Symmetric radial artery pulses Pulmonary/Chest: Effort normal. No stridor. No respiratory distress. No wheezes. No rales. No rhonchi . No tenderness. Abdominal: Soft. No distension. No mass. No tenderness. No rebound. No guarding. Musculoskeletal: RUE: Normal range of motion. No tenderness. No deformity LUE: Normal range of motion. No tenderness. No deformity RLE: Normal range of motion. No edema. No tenderness. No deformity LLE: Normal range of motion. No edema. No tenderness. No deformity Neurological: Alert and oriented to person, place, and time. Normal strength. CN II-VII intact. No sensory deficit. GCS eye subscore is 4. GCS verbal subscore is 5. GCS motor subscore is 6. Normal coordination Skin: Skin is warm and dry. No rash noted. No pallor. Normal capillary refill. Psychiatric: Normal mood. Normal affect. Const: Vital Signs, click to edit/add: Vital Signs - 24 hr 07/09/24 21:54 07/09/24 23:44 Temperature 98.6 F Pulse Rate [Left P ulse Oximeter] 80 68 Respiratory Rate 20 16 Blood Pressure [Le ft Upper Arm] 120/78 109/73 Pulse Oximetry 95 97 Oxygen Delivery Me thod Room Air Room Air Course Vital Signs Vital signs: Initial Vital Signs Temperature 98.6 F 07/09/24 21:54 Temperature Source Temporal Artery Scan 07/09/24 21:54 Pulse Rate 80 07/09/24 21:54 Respiratory Rate 20 07/09/24 21:54 Blood Pressure 120/78 07/09/24 21:54 Blood Pressure Mean 92 07/09/24 21:54 Blood Pressure Position Semi-Fowlers 07/09/24 21:54 Pulse Oximetry 95 07/09/24 21:54 Oxygen Delivery Method Room Air 07/09/24 21:54 Vital Signs Temperature 98.6 F 07/09/24 21:54 Pulse Rate 80 07/09/24 21:54 Respiratory Rate 20 07/09/24 21:54 Blood Pressure 120/78 07/09/24 21:54 Pulse Oximetry 95 07/09/24 21:54 Oxygen Delivery Method Room Air 07/09/24 21:54 Temperature 98.6 F 07/09/24 21:54 Pulse Rate 68 07/09/24 23:44 Respiratory Rate 16 07/09/24 23:44 Blood Pressure 109/73 07/09/24 23:44 Pulse Oximetry 97 07/09/24 23:44 Oxygen Delivery Method Room Air 07/09/24 23:44 Medical Decision Making MDM Narrative Medical decision making narrative: This patient presents for evaluation of palpitations. Initial ECG shows normal sinus rhythm and no dysrhythmogenic abnormality such as WPW, prolonged QT, Brugada syndrome, and no ischemia. A broad differential diagnosis was considered including SVT, Atrial fibrillation, ventricular arrhythmia, thyroid disease, acute electrolyte abnormality, drugs/medications, caffeine intake or other stimulants, medication side effect, anemia, heart disease, PE, among others personnel monitor while the patient here in the ER showed no dysrhythmia but did show 1 PVC (which the patient did not appreciate) while she was in the ER. The patient does have an [employer] watch which records her cardiac rhythm. She showed me to two 30 second rhythm strips from [employer] when she was having her palpitations at home. They do show frequent premature ventricular contractions. Unclear cause for the PVCs. The workup and exam here in ED shows not specific cause of the patient's PVCs, and no risks factors to warrant admission. Clinical judgement suggests that supportive outpatient management is indicated. Will arrange an outpatient Holter monitor and recommend follow up with her primary care provider her control specialist. Precautions for return to the ER reviewed. Questions answered with the patient . Lab Data Labs: Lab Results 07/09/24 Range/Units 22:36 WBC 6.49 (4.50-11.00) K/uL RBC 3.92 L (4.00-5.20) m/uL Hgb 11.7 L (12.0-16.0) gm/dL Hct 36.9 (33.0-51.0) % MCV 94 (80-100) fL MCH 30 (26-34) pg MCHC 32 (32-36) gm/dL RDW Coeff of Boo 13.3 (11.5-15.5) % Plt Count 189 (140-440) K/uL Neut % (Auto) 46.9 (42.0-72.0) % Lymph % (Auto) 35.6 (20-44) % [place] % (Auto) 11.1 H (0.0-11.0) % Eos % (Auto) 4.9 (0.0-7.0) % Baso % (Auto) 0.6 (0.0-3.0) % Neut # (Auto) 3.04 (1.7-7.0) K/uL Lymph # (Auto) 2.31 (0.90-2.90) K/uL [place] # (Auto) 0.70 (0.00-0.90) K/UL Eos # (Auto) 0.32 (0.00-0.50) K/uL Baso # (Auto) 0.04 (0.00-0.30) K/uL Abs Immat Gran (auto) 0.06 (0.00-0.30) K/uL Imm/Tot Granulo (auto) 0.9 % Sodium 136 (135-149) mmol/L Potassium 4.0 (3.6-5.1) mmol/L Chloride 108 (96-114) mmol/L Carbon Dioxide 23 (20-32) mmol/L Anion Gap 5 L (7-15) mEq/L BUN 25 (7-30) mg/dL Creatinine 0.6 (0.5-1.5) mg/dL Estimated Creat Clear 50.41 Estimated GFR 98 ml/min Glucose 79 (60-115) mg/dL Calcium 9.0 (8.4-10.6) mg/dL Troponin I < 0.01 L (0.01-0.04) ng/mL TSH 1.900 (0.270-4.200) uIU/mL ECG Data Attestation: I personally reviewed and interpreted this ECG as follows: Interpretation: Normal sinus rhythm with 1 premature atrial complex Rate: 68 IN: 160 QRS axis: Normal axis ST segment/T wave: No pathologic Q-waves. No ST segment elevation or depression. QTc: For 18 Discharge Plan Discharge Clinical Impression: Symptomatic PVCs Patient Disposition: Home, Self-Care Condition: Stable Instructions: Premature Ventricular Contractions (ED) Additional Instructions: As we discussed, please continue to wear Zio patch and follow-up with your doctor next week in clinic Return to the ER right away if you have any concerns especially lightheadedness, fainting spells, or palpitations, chest pain, or trouble breathing. Prescriptions: No Action fexofenadine 180 mg tablet 180 mg PO DAILY pediatric nutr, iron, LF-fiber 0.03-0.6 gram-kcal/mL liquid PO .twiceweekly mecobalamin (vitamin B12) 1,000 mcg tablet,disintegrating 1,000 mcg sublingual QDAY Rx Instructions: place tablet under tongue and allow to dissolve for at least30 secs before swallowing cholecalciferol (vitamin D3) 50 mcg (2,000 unit) tablet,chewable 50 mcg PO QDAY fluticasone propionate 50 mcg/actuation spray,suspension 1 spray INTRANASAL DAILY Follow Up/Referrals: Donaldo Whittaker MD [Primary Care Provider] - Stand Alone Forms: [employer] Info Instructions
[2024-07-09 21:54] VITALS: BP 120/78; PULSE 80; RESP 20; TEMP 37; O2SAT 95; BMI 29.1
[2024-07-09 22:51] LABS: Basophils Absolute Auto 0.04 K/uL (0.00-0.30); Basophils Percent Auto 0.6 % (0.0-3.0); Eosinophils Absolute Auto 0.32 K/uL (0.00-0.50); Eosinophils Percent Auto 4.9 % (0.0-7.0); Hematocrit 36.9 % (33.0-51.0); Hemoglobin* 11.7 gm/dL (12.0-16.0); Immature Granulocytes Abs Auto 0.06 K/uL (0.00-0.30); Immature Granulocytes Pct Auto 0.9 %; Lymphocytes Absolute Auto 2.31 K/uL (0.90-2.90); Lymphocytes Percent Auto 35.6 % (20-44); Mean Corpuscular HGB Conc 32 gm/dL (32-36); Mean Corpuscular Hemoglobin 30 pg (26-34); Mean Corpuscular Volume 94 fL (80-100); Monocytes Percent Auto 11.1 % (0.0-11.0); Neutrophils Absolute Auto 3.04 K/uL (1.7-7.0); Neutrophils Percent Auto 46.9 % (42.0-72.0); Platelet Count* 189 K/uL (140-440); RDW Coefficient of Variation % 13.3 % (11.5-15.5); Red Blood Count 3.92 m/uL (4.00-5.20); White Blood Count* 6.49 K/uL (4.50-11.00)
[2024-07-09 23:00] LABS: Chloride* 108 mmol/L (96-114); Sodium* 136 mmol/L (135-149)
[2024-07-09 23:02] LABS: Creatinine* 0.6 mg/dL (0.5-1.5); Est. Creatinine Clearance* 50.41; Estimated Glomerular Filt Rate 98 ml/min
[2024-07-09 23:03] LABS: Anion Gap 5 mEq/L (7-15); Blood Urea Nitrogen* 25 mg/dL (7-30); Carbon Dioxide* 23 mmol/L (20-32); Glucose* 79 mg/dL (60-115)
[2024-07-09 23:09] LABS: Slide Review Reflex No
[2024-07-09 23:31] LABS: Troponin I* < 0.01 ng/mL (0.01-0.04)
[2024-07-09 23:44] VITALS: BP 109/73; PULSE 68; RESP 16; O2SAT 97
== END 2024-07-10 00:12 | disposition home or self-care (01) ==
PROVIDERS: Emergency Provider Emergency Medicine; PCP Family Medicine
DX: I49.3 Ventricular premature depolarization (principal)
CPT/HCPCS: 36415; 80048; 84443; 84484; 85025; 93005; 99283; 99284